=== PATIENT | male | born 1990 | race African-American/Black ===

== ENCOUNTER 2016-05-14 23:53 | Emergency (ER) | payer SELFPAY ==
[~2016-05-14] VITALS: Ht 175.3 cm; Wt 82.0 kg
[2016-05-15 00:05] VITALS: BP 132/84
== END 2016-05-17 01:17 | disposition left against medical advice (07) ==
LOC: ER 23:53
DX: T65.0X1A Toxic effect of cyanides, accidental (unintentional), initial encounter (principal); R07.0 Pain in throat; F17.200 Nicotine dependence, unspecified, uncomplicated; Y92.89 Other specified places as the place of occurrence of the external cause